=== PATIENT | female | born 1990 | race Caucasian/White ===

== ENCOUNTER 2018-05-25 08:04 | Outpatient (CLI) | payer OTHER ==
[2018-05-25 08:44] LABS: BASOPHILS # (AUTO) 0.1 10^3/uL (0.0-0.1); EOSINOPHILS # (AUTO) 0.2 10^3/uL (0.0-0.7); EOSINOPHILS % (AUTO) 2.4 %; HGB - HEMOGLOBIN 12.5 g/dL (12.0-16.0); LYMPHOCYTES # (AUTO) 1.8 10^3/uL (1.5-3.5); LYMPHOCYTES % (AUTO) 27.6 %; MEAN CORPUSCULAR HEMOGLOBIN 30.8 pg (27.0-31.0); MEAN CORPUSCULAR HGB CONC 34.3 g/dL (32.0-36.0); MEAN CORPUSCULAR VOLUME 89.8 fL (81.0-99.0); MEAN PLATELET VOLUME 9.6 fL (7.9-10.8); MONOCYTES # (AUTO) 0.4 10^3/uL (0.0-1.0); MONOCYTES % (AUTO) 6.2 %; NEUTROPHILS # (AUTO) 4.1 10^3/uL (1.5-6.6); NEUTROPHILS % (AUTO) 62.8 %; PLT - PLATELET COUNT 261 10^3/uL (130-450); RED BLOOD COUNT 4.05 10^6/uL (4.20-5.40); RED CELL DISTRIBUTION WIDTH 12.8 % (12.0-15.0); WHITE BLOOD COUNT 6.6 x10^3/uL (4.8-10.8)
[2018-05-25 08:47] LABS: ALBUMIN 4.5 g/dL (3.2-5.5); ALBUMIN/GLOBULIN RATIO 1.5 (1.0-2.2); ALKALINE PHOSPHATASE 36 IU/L (42-121); ALT ALANINE AMINOTRANSFERASE 32 IU/L (10-60); AST ASPARTATE AMINOTRANSFERASE 32 IU/L (10-42); BUN - BLOOD UREA NITROGEN 11 mg/dL (6-20); CALCIUM 9.2 mg/dL (8.5-10.3); CARBON DIOXIDE - CO2 25 mmol/L (21-32); CHLORIDE 103 mmol/L (101-111); CHOL/HDL RATIO 2.3 (<4.4); CHOLESTEROL 201 mg/dL; CREATININE 0.8 mg/dL (0.4-1.0); GFR - MDRD 85 (>89); GLUCOSE 93 mg/dL (70-100); HDL CHOLESTEROL 88 mg/dL; LDL CHOLESTEROL,CALCULATED 97 mg/dL; LDL/HDL RATIO 1.1 (<4.4); SODIUM 136 mmol/L (135-145); TOTAL PROTEIN 7.5 g/dL (6.7-8.2); VLDL CHOLESTEROL 16 mg/dL
[2018-05-25 08:59] LABS: THYROID STIMULATING HORMONE 0.73 uIU/mL (0.34-5.60)
[2018-05-25 09:10] LABS: FOLATE 14.91 ng/mL (5.90 - >24.8)
== END 2018-05-25 08:05 | disposition home or self-care (01) ==
LOC: LAB 08:04
PROVIDERS: ATTEND Nurse Practitioner
DX: E55.9 Vitamin D deficiency, unspecified (principal); R53.83 Other fatigue; R03.0 Elevated blood-pressure reading, without diagnosis of hypertension
CPT/HCPCS: 36415; 80053; 80061; 82306; 82607; 82746; 83721; 84443; 85025

== ENCOUNTER 2018-05-28 16:15 | Outpatient (CLI) | payer OTHER ==
[2018-05-28 17:07] LABS: % IRON SATURATION 18 % (20-50); IRON 74 ug/dL (28-170); TOTAL IRON BINDING CAPACITY 402 ug/dL (250-450); TRANSFERRIN 287 mg/dL (192-382)
== END 2018-05-28 16:16 | disposition home or self-care (01) ==
LOC: LAB 16:15
PROVIDERS: ATTEND Nurse Practitioner
DX: R53.83 Other fatigue (principal); D64.9 Anemia, unspecified
CPT/HCPCS: 36415; 82728; 83540; 84466

== ENCOUNTER 2018-06-26 17:16 | Emergency (ER) | payer OTHER ==
[2018-06-26 17:52] LABS: BASOPHILS # (AUTO) 0.1 10^3/uL (0.0-0.1); BASOPHILS % (AUTO) 1.2 %; EOSINOPHILS # (AUTO) 0.1 10^3/uL (0.0-0.7); HGB - HEMOGLOBIN 11.9 g/dL (12.0-16.0); LYMPHOCYTES # (AUTO) 2.5 10^3/uL (1.5-3.5); LYMPHOCYTES % (AUTO) 38.5 %; MEAN CORPUSCULAR HEMOGLOBIN 30.6 pg (27.0-31.0); MEAN CORPUSCULAR HGB CONC 33.9 g/dL (32.0-36.0); MEAN CORPUSCULAR VOLUME 90.1 fL (81.0-99.0); MEAN PLATELET VOLUME 9.5 fL (7.9-10.8); MONOCYTES # (AUTO) 0.5 10^3/uL (0.0-1.0); MONOCYTES % (AUTO) 7.5 %; NEUTROPHILS # (AUTO) 3.3 10^3/uL (1.5-6.6); NEUTROPHILS % (AUTO) 50.8 %; PLT - PLATELET COUNT 259 10^3/uL (130-450); RED BLOOD COUNT 3.89 10^6/uL (4.20-5.40); RED CELL DISTRIBUTION WIDTH 12.9 % (12.0-15.0); WHITE BLOOD COUNT 6.5 x10^3/uL (4.8-10.8)
[2018-06-26 17:57] LABS: ALBUMIN 4.2 g/dL (3.2-5.5); ALBUMIN/GLOBULIN RATIO 1.3 (1.0-2.2); BILIRUBIN,TOTAL 0.5 mg/dL (0.2-1.0); CALCIUM 9.1 mg/dL (8.5-10.3); CREATININE 0.7 mg/dL (0.4-1.0); TOTAL PROTEIN 7.4 g/dL (6.7-8.2)
--- NOTE | 2018-06-26 19:28 | XRAY Report ---
Reason: CP Procedure Date: 06/26/2018 Accession Number: [id number] / [id number] Procedure: XR - Chest 2 View X-Ray CPT Code: 91533 FULL RESULT: EXAM: CHEST RADIOGRAPHY EXAM DATE: 06/26/2018 07:11 PM. CLINICAL HISTORY: Chest pain. Heart murmur. COMPARISON: None. TECHNIQUE: 2 views. FINDINGS: Lungs/Pleura: No focal opacities evident. No pleural effusion. No pneumothorax. Normal volumes. Mediastinum: Heart and mediastinal contours are unremarkable. Other: None. IMPRESSION: Normal 2-view chest radiography. RADIA
--- NOTE | 2018-06-26 19:42 | ED Physician Documentation ---
PD HPI CHEST PAIN - Stated complaint Stated Complaint: CP - Chief complaint Chief Complaint: Cardiac - History obtained from History obtained from: Patient - Additional information Additional information: 28-year-old female presents with chest pain which radiates into her neck. The symptoms occurred earlier today. Symptoms are described as moderate. The patient has a history of recurring chest pain and currently is being evaluated by her primary care. The patient denies recent dyspnea on exertion, URI symptoms, fever, cough or congestion. No recent injury or trauma. The patient also reports palpitations. The patient reports feeling dizzy and lightheaded. Symptoms are described as moderate. No other associated symptoms. No triggering factors. 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) HEENT: Tonsil/Adenoidectomy - Present Medications Home Medications: Ambulatory Orders Medication Instructions Recorded Confirmed Home Medications Unobtainable 06/26/18 06/26/18 [HOME MEDICATIONS UNOBTAINABLE] - Allergies Allergies/Adverse Reactions: Allergies Allergy/AdvReac Type Severity Reaction Status Date / Time doxycycline Allergy Rash Verified 06/26/18 18:16 erythromycin base AdvReac Nausea Verified 06/26/18 18:15 - Social History Does the pt smoke?: No Smoking Status: Never smoker Does the pt drink ETOH?: Yes Does the pt have substance abuse?: No - Immunizations Immunizations are current?: Yes PD ED PE NORMAL - General General: Alert and oriented X 3, No acute distress - HEENT HEENT: Atraumatic, PERRL, EOMI, Ears normal - Neck Neck: Supple, no meningeal sign - Cardiac Cardiac: RRR, Strong equal pulses - Respiratory Respiratory: No respiratory distress, Clear bilaterally - Abdomen Abdomen: Soft, Non tender, Non distended - Derm Derm: Normal color - Extremities Extremities: No deformity, Normal ROM s pain, No edema - Neuro Neuro: Alert and oriented X 3, Normal speech - Psych Psych: Normal mood Results - Vitals Vitals: Vital Signs - 24 hr 06/26/18 06/26/18 06/26/18 17:23 18:17 19:34 Temperature 36.2 C L Heart Rate 85 76 80 Respiratory 18 18 19 Rate Blood Pressure 131/76 H 116/78 114/63 O2 Saturation 100 100 100 Oxygen O2 Source Room air - EKG (time done) 17:28 Rate: Rate (enter#) Rhythm: NSR [place]: Normal Intervals: Normal NE QRS: Normal Ischemia: Normal ST segments - Labs Labs: Laboratory Tests 06/26/18 06/26/18 06/26/18 17:38 17:38 17:38 WBC 6.5 RBC 3.89 L Hgb 11.9 L Hct 35.1 L MCV 90.1 MCH 30.6 MCHC 33.9 RDW 12.9 Plt Count 259 MPV 9.5 Neut # (Auto) 3.3 Lymph # (Auto) 2.5 [place] # (Auto) 0.5 Eos # (Auto) 0.1 Baso # (Auto) 0.1 Absolute Nucleated RBC 0.01 Nucleated RBC % 0.1 Sodium 137 Potassium 3.7 Chloride 102 Carbon Dioxide 27 Anion Gap 8.0 BUN 9 Creatinine 0.7 Estimated GFR (MDRD) 99 Glucose 105 H Calcium 9.1 Total Bilirubin 0.5 AST 27 ALT 26 Alkaline Phosphatase 39 L Troponin I < 0.04 Total Protein 7.4 Albumin 4.2 Globulin 3.2 Albumin/Globulin Ratio 1.3 Lipase 38 - Rads (name of study) CXR Radiology: Final report received (IMPRESSION: Normal 2-view chest radiography. ) PD MEDICAL DECISION MAKING - ED course ED course: The patient's evaluation does not show any significant and the patient is extremely low risk for early acute coronary syndrome. Pulmonary embolism is also unlikely. Currently, the patient appears appropriate for discharge and ongoing outpatient management. I discussed with her the findings and plan and she understands and agrees. The patient is scheduled to see her primary tomorrow and is appropriate for discharge and further workup as an outpatient. I discussed warning signs and recommended returning to the emergency department immediately for any worsening or any concerns. Departure - Departure Disposition: 01 Home, Self Care Clinical Impression: Chest pain Qualifiers: Chest pain type: unspecified Qualified Code(s): R07.9 - Chest pain, unspecified Condition: Good Instructions: ED Chest Pain [facility] Follow-Up: Cindy Espinoza DNP [Primary Care Provider] - Tomorrow (Please ask your primary care nurse practitioner to arrange for an outpatient echocardiogram and Holter monitor to further evaluate your symptoms.) Comments: Please return to the emergency department for any worsening symptoms or any concerns
[2018-06-26 19:44] VITALS: BP 117/78
== END 2018-06-26 19:51 | disposition home or self-care (01) ==
LOC: ED 17:16
DX: R07.9 Chest pain, unspecified (principal)
CPT/HCPCS: 36415; 71046; 80053; 83690; 84484; 85025; 93005; 99283; 99284

== ENCOUNTER 2018-07-02 13:32 | Outpatient (CLI) | payer OTHER ==
--- NOTE | 2018-07-02 15:32 | XRAY Report ---
Reason: ARTHRITIS,BILAT HAND Procedure Date: 07/02/2018 Accession Number: [id number] / [id number] Procedure: XR - Hand 2 View BILAT CPT Code: FULL RESULT: EXAMS: 1. Right Hand Radiography 2. Left Hand Radiography EXAM DATE: 07/02/2018 02:46 PM. CLINICAL HISTORY: Bilateral hand pain COMPARISON: None. TECHNIQUE: 3 views each hand. FINDINGS: Right: Bones: No fractures or bone lesions. Joints: No subluxations. Soft Tissues: No soft tissue swelling or radiopaque foreign body. Left: Bones: No fractures or bone lesions. Joints: No subluxations. Soft Tissues: No soft tissue swelling or radiopaque foreign body.. IMPRESSION: Normal bilateral hand radiography. RADIA
[2018-07-04 13:50] LABS: ANA SCREEN NEGATIVE (NEGATIVE)
== END 2018-07-02 13:33 | disposition home or self-care (01) ==
LOC: LAB 13:32 → DI 13:33
PROVIDERS: ATTEND Nurse Practitioner
DX: M12.849 Other specific arthropathies, not elsewhere classified, unspecified hand (principal); R19.4 Change in bowel habit; R53.83 Other fatigue
CPT/HCPCS: 36415; 82274; 86038

== ENCOUNTER 2018-07-11 17:25 | Outpatient (CLI) | payer OTHER ==
--- NOTE | 2018-07-11 20:36 | Ultrasound Report ---
Reason: CAROTID BRUITIS,BILAT Procedure Date: 07/11/2018 Accession Number: [id number] / [id number] Procedure: US - Carotid Doppler Complete CPT Code: FULL RESULT: EXAM: BILATERAL CAROTID AND VERTEBRAL ARTERY DUPLEX DOPPLER ULTRASOUND. EXAM DATE: 07/11/2018 06:08 PM CLINICAL HISTORY: Carotid bruits, bilateral. COMPARISON: None. TECHNIQUE: Grayscale imaging, color Doppler, and duplex spectral Doppler were used to evaluate the carotid and vertebral arteries bilaterally. Static images were obtained. FINDINGS: No significant plaque is identified in the right or left common or internal carotid arteries. Normal antegrade flow is present in bilateral vertebral arteries. VELOCITIES (cm/sec): Right CCA mid: PSV 128.5 cm/sec CCA dist: PSV 118.8 cm/sec ICA prox: PSV 96.2 cm/sec, EDV 34.6 cm/sec ICA mid: PSV 113.1 cm/sec, EDV 36.3 cm/sec ICA dist: PSV 99.6 cm/sec, EDV 40.5 cm/sec ECA: PSV 82.7 cm/sec Vert: PSV 52.3 cm/sec ICA/CCA: 0.88 Left CCA mid: PSV 138.2 cm/sec CCA dist: PSV 129.0 cm/sec ICA prox: PSV 84.4 cm/sec, EDV 31.2 cm/sec ICA mid: PSV 101.3 cm/sec, EDV 40.5 cm/sec ICA dist: PSV 96.2 cm/sec, EDV 41.4 cm/sec ECA: PSV 116.1 cm/sec Vert: PSV 47.3 cm/sec ICA/CCA: 0.73 ICA diameter stenosis: Right: <50% by velocity and <70% by NASCET criteria. Left: <50% by velocity and <70% by NASCET criteria. IMPRESSION: 1. No significant bilateral carotid artery plaquing. 2. In the right carotid artery there are no elevated carotid artery velocities to suggest hemodynamically significant stenosis. 3. In the left carotid artery there are no elevated carotid artery velocities to suggest hemodynamically significant stenosis. 4. Normal antegrade flow is present in bilateral vertebral arteries. General Recommendations: Stenosis =50% ICA - Follow-up ultrasound 6-12 months Stenosis <50% ICA - High Risk Patient with plaque - Follow-up ultrasound 1-2 years Normal Study but High Risk Patient - Follow-up ultrasound 3-5 years Management recommendations and diagnostic criteria are based on current IAC endorsed standards in Carotid Artery Stenosis: Grayscale and Doppler Ultrasound Diagnosis. Validated velocity measurements with angiographic measurements and velocity criteria are extrapolated from diameter data as defined by the Society of Radiologists in Ultrasound Consensus Conference Radiology 2003; 229;340-346. RADIA
== END 2018-07-11 17:26 | disposition home or self-care (01) ==
LOC: DI 17:25
PROVIDERS: ATTEND Nurse Practitioner
DX: R09.89 Other specified symptoms and signs involving the circulatory and respiratory systems (principal)
CPT/HCPCS: 93880

== ENCOUNTER 2018-11-29 18:09 | Emergency (ER) | payer OTHER ==
[2018-11-29 18:21] VITALS: BP 127/83
--- NOTE | 2018-11-29 20:41 | ED Physician Documentation ---
PD HPI SKIN - Stated complaint Stated Complaint: BACK PAIN - Chief complaint Chief Complaint: Wound - Additional information Additional information: 28-year-old female presents the emergency department for evaluation of a mole which bled at the margins while showering today. The bleeding has resolved. The patient would like a biopsy to rule out the possibility of cancer. No other acute symptoms. Symptoms currently are mild. 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) HEENT: Tonsil/Adenoidectomy - Present Medications Home Medications: Ambulatory Orders Medication Instructions Recorded Confirmed Home Medications Unobtainable 06/26/18 06/26/18 [HOME MEDICATIONS UNOBTAINABLE] - Allergies Allergies/Adverse Reactions: Allergies Allergy/AdvReac Type Severity Reaction Status Date / Time doxycycline Allergy Rash Verified 06/26/18 18:16 erythromycin base AdvReac Nausea Verified 06/26/18 18:15 - Social History Does the pt smoke?: No Smoking Status: Never smoker Does the pt drink ETOH?: Yes Does the pt have substance abuse?: No - Immunizations Immunizations are current?: Yes - POLST Patient has POLST: No PD ED PE NORMAL - General General: Alert and oriented X 3, No acute distress - HEENT HEENT: Atraumatic, PERRL, EOMI, Ears normal - Derm Derm: Normal color, Other (The patient has a irregular mole on her mid back which is raised and there is some mild bleeding at the margins. There is no evidence of a superimposed infection, cellulitis or underlying abscess.) - Extremities Extremities: No deformity - Neuro Neuro: Alert and oriented X 3, Normal speech Results - Vitals Vitals: Vital Signs - 24 hr 11/29/18 18:16 Temperature 36.9 C Heart Rate 70 Respiratory 16 Rate Blood Pressure 127/83 H O2 Saturation 100 Oxygen O2 Source Room air PD MEDICAL DECISION MAKING - ED course ED course: The patient does have an atypical mole on her back, presently there is no acute findings. The patient appears appropriate for discharge with follow-up as an outpatient. I recommended that the mole get biopsied as an outpatient with primary care. The patient understands and agrees. The patient will return to the emergency department for any worsening or any concerns Departure - Departure Disposition: 01 Home, Self Care Clinical Impression: Atypical mole Condition: Good Instructions: Moles Monitor Follow-Up: Cindy Espinoza DNP [Primary Care Provider] - Within 1 week (Please follow-up with your primary care as soon as possible for further evaluation of the small and possible biopsy.) Comments: Please return to the emergency department for worsening symptoms or any concerns Discharge Date/Time: 11/29/18 20:55
== END 2018-11-29 20:55 | disposition home or self-care (01) ==
LOC: ED 18:09
DX: D22.5 Melanocytic nevi of trunk (principal)
CPT/HCPCS: 99282

== ENCOUNTER 2019-03-25 15:40 | Outpatient (CLI) | payer OTHER ==
[2019-03-25 16:05] LABS: HGB - HEMOGLOBIN 11.8 g/dL (12.0-16.0); MEAN CORPUSCULAR HEMOGLOBIN 30.1 pg (27.0-31.0); MEAN CORPUSCULAR HGB CONC 32.4 g/dL (32.0-36.0); MEAN CORPUSCULAR VOLUME 92.9 fL (81.0-99.0); RED BLOOD COUNT 3.92 10^6/uL (4.20-5.40); RED CELL DISTRIBUTION WIDTH 12.6 % (12.0-15.0); WHITE BLOOD COUNT 8.4 x10^3/uL (4.8-10.8)
== END 2019-03-25 15:41 | disposition home or self-care (01) ==
LOC: LAB 15:40
PROVIDERS: ATTEND Nurse Practitioner
DX: D64.9 Anemia, unspecified (principal); R53.83 Other fatigue; Z87.898 Personal history of other specified conditions
CPT/HCPCS: 36415; 82306; 82607; 84443; 85027

== ENCOUNTER 2019-03-29 14:55 | Outpatient (CLI) | payer OTHER ==
--- NOTE | 2019-03-29 16:02 | Ultrasound Report ---
Reason: PELVIC PAIN,POSTCOITAL BLEEDING Procedure Date: 03/29/2019 Accession Number: [id number] / [id number] Procedure: US - Pelvic w/Transvaginal CPT Code: FULL RESULT: EXAM: PELVIC ULTRASOUND EXAM DATE: 03/29/2019 03:37 PM. CLINICAL HISTORY: Pelvic pain, postcoital bleeding. COMPARISON: None. TECHNIQUE: Realtime transabdominal pelvic scan performed to identify the uterus and adnexa and as an overview of other pelvic structures, followed by transvaginal scan to provide greater detail of the uterus and adnexa, with static image documentation. FINDINGS: Uterus: 7.6 x 3.5 x 4.5 cm, volume 62 cc. Anteverted position. Normal overall size and echotexture. Masses: None. Endometrium: 6 mm. Avascular material is seen within the fundal endometrium and fluid is seen within the cervix. Cervix: No cervical masses detected. Right Ovary: 2.8 x 2.1 x 1.7 cm, volume 5.1 cc. Normal echotexture and blood flow. Left Ovary: 2.2 x 1.5 x 1.9 cm, volume 3 cc. Normal echotexture and blood flow. Free Fluid: None. Other: None. IMPRESSION: Material within the fundal endometrium and fluid within the endocervix. The patient reports her LMP to be on the day of the examination. Recommendation: Repeat examination during the proliferative phase versus consideration for tissue sampling if clinically indicated. RADIA
== END 2019-03-29 14:56 | disposition home or self-care (01) ==
LOC: DI 14:55
PROVIDERS: ATTEND Obstetrics & Gynecology
DX: R10.2 Pelvic and perineal pain (principal); N93.0 Postcoital and contact bleeding
CPT/HCPCS: 76830; 76856

== ENCOUNTER 2019-05-24 14:30 | Outpatient (CLI) | payer OTHER ==
--- NOTE | 2019-05-24 18:03 | XRAY Report ---
Reason: CERVICAL LYMPHADENOPATHY, THORACIC OUTLET SYNDROME Procedure Date: 05/24/2019 Accession Number: [id number] / [id number] Procedure: XR - Cervical Spine 2 View CPT Code: FULL RESULT: EXAM: CERVICAL AND THORACIC SPINE RADIOGRAPHY EXAM DATE: 05/24/2019 03:21 PM. CLINICAL HISTORY: Cervical lymphadenopathy, thoracic outlet syndrome. COMPARISON: CHEST 2 VIEW 06/26/2018 6:49 PM CERVICAL SPINE 2 VIEW 05/24/2019 3:00 PM. TECHNIQUE: 2 views of the thoracic spine and 3 views of the cervical spine. FINDINGS: Alignment: No acute malalignment. Mild lower thoracic dextroscoliosis. Bones: No fractures or bone lesions. Right C7 transverse process is slightly longer than typical, but not seferino cervical rib. Disks: Normal. Disk heights are maintained. Soft Tissues: Please see separate soft tissue neck report. The visualized lungs and cardiomediastinal silhouette are normal. IMPRESSION: 1. Right C7 transverse process is slightly longer than typical, but not seferino cervical rib. 2. Mild lower thoracic dextroscoliosis. 3. Otherwise grossly unremarkable cervical and thoracic spine plain films. RADIA
--- NOTE | 2019-05-24 18:03 | XRAY Report ---
Reason: CERVICAL LYMPHADENOPATHY, THORACIC OUTLET SYNDROME Procedure Date: 05/24/2019 Accession Number: [id number] / [id number] Procedure: XR - Thoracic Spine 2 View CPT Code: FULL RESULT: EXAM: CERVICAL AND THORACIC SPINE RADIOGRAPHY EXAM DATE: 05/24/2019 03:21 PM. CLINICAL HISTORY: Cervical lymphadenopathy, thoracic outlet syndrome. COMPARISON: CHEST 2 VIEW 06/26/2018 6:49 PM CERVICAL SPINE 2 VIEW 05/24/2019 3:00 PM. TECHNIQUE: 2 views of the thoracic spine and 3 views of the cervical spine. FINDINGS: Alignment: No acute malalignment. Mild lower thoracic dextroscoliosis. Bones: No fractures or bone lesions. Right C7 transverse process is slightly longer than typical, but not seferino cervical rib. Disks: Normal. Disk heights are maintained. Soft Tissues: Please see separate soft tissue neck report. The visualized lungs and cardiomediastinal silhouette are normal. IMPRESSION: 1. Right C7 transverse process is slightly longer than typical, but not seferino cervical rib. 2. Mild lower thoracic dextroscoliosis. 3. Otherwise grossly unremarkable cervical and thoracic spine plain films. RADIA
--- NOTE | 2019-05-27 10:34 | Ultrasound Report ---
Reason: CERVICAL LYMPHADENOPATHY, THORACIC OUTLET SYNDROME Procedure Date: 05/24/2019 Accession Number: [id number] / [id number] Procedure: US - Head or Neck Soft Tissue CPT Code: FULL RESULT: EXAM: NECK ULTRASOUND EXAM DATE: 05/24/2019 04:51 PM. CLINICAL HISTORY: CERVICAL LYMPHADENOPATHY, THORACIC OUTLET SYNDROME. Family history of lymphoma. Palpable lumps bilaterally. COMPARISON: None. TECHNIQUE: Real-time sonographic imaging was performed by the knife sharpener utilizing color-flow. Multiple loan servicing representative static images were saved for review. FINDINGS: Right submandibular gland 4.2 x 1.7 x 3.7 cm and left submandibular gland 4.2 x 1.6 x 3.2 cm. Both submandibular glands are unremarkable in appearance. No regional adenopathy, cystic or solid mass, or abnormal fluid collection is appreciated. IMPRESSION: Negative soft tissue neck ultrasound. No adenopathy is identified. RADIA
== END 2019-05-24 14:31 | disposition home or self-care (01) ==
LOC: DI 14:30
PROVIDERS: ATTEND Nurse Practitioner
DX: G54.0 Brachial plexus disorders (principal); R59.0 Localized enlarged lymph nodes; M41.9 Scoliosis, unspecified
CPT/HCPCS: 72040; 72070; 76536

== ENCOUNTER 2019-08-29 08:00 | Outpatient (CLI) | payer OTHER ==
[2019-08-30 23:05] LABS: CANDIDA GROUP DNA NEGATIVE (NEGATIVE); CANDIDA KRUSEI DNA NEGATIVE (NEGATIVE); TRICHOMONAS VAGINALIS DNA NEGATIVE (NEGATIVE)
== END 2019-08-29 23:59 | disposition home or self-care (01) ==
LOC: LAB.R 08:00
PROVIDERS: ATTEND Obstetrics & Gynecology
DX: N89.8 Other specified noninflammatory disorders of vagina (principal)
CPT/HCPCS: 87661; 87801

== ENCOUNTER 2019-10-11 15:06 | Outpatient (CLI) | payer OTHER ==
[2019-10-11 15:27] LABS: BASOPHILS # (AUTO) 0.1 10^3/uL (0.0-0.1); BASOPHILS % (AUTO) 0.7 %; EOSINOPHILS # (AUTO) 0.1 10^3/uL (0.0-0.7); EOSINOPHILS % (AUTO) 0.8 %; HGB - HEMOGLOBIN 12.2 g/dL (12.0-16.0); LYMPHOCYTES # (AUTO) 2.3 10^3/uL (1.5-3.5); LYMPHOCYTES % (AUTO) 32.1 %; MEAN CORPUSCULAR HEMOGLOBIN 30.6 pg (27.0-31.0); MEAN CORPUSCULAR HGB CONC 32.6 g/dL (32.0-36.0); MEAN CORPUSCULAR VOLUME 93.7 fL (81.0-99.0); MEAN PLATELET VOLUME 10.9 fL (7.9-10.8); MONOCYTES # (AUTO) 0.4 10^3/uL (0.0-1.0); MONOCYTES % (AUTO) 5.7 %; NEUTROPHILS # (AUTO) 4.3 10^3/uL (1.5-6.6); NEUTROPHILS % (AUTO) 60.6 %; PLT - PLATELET COUNT 297 10^3/uL (130-450); RED BLOOD COUNT 3.99 10^6/uL (4.20-5.40); RED CELL DISTRIBUTION WIDTH 12.9 % (12.0-15.0); WHITE BLOOD COUNT 7.1 x10^3/uL (4.8-10.8)
[2019-10-11 15:40] LABS: % IRON SATURATION 18 % (20-50); IRON 82 ug/dL (28-170); TOTAL IRON BINDING CAPACITY 455 ug/dL (250-450); TRANSFERRIN 325 mg/dL (192-382)
[2019-10-11 15:55] LABS: THYROID STIMULATING HORMONE 0.54 uIU/mL (0.34-5.60)
[2019-10-11 15:57] LABS: FREE T4 (FREE THYROXINE) 0.85 ng/dL (0.58-1.64)
[2019-10-11 16:01] LABS: FERRITIN 17.4 ng/mL (11.0-306.8)
== END 2019-10-11 15:07 | disposition home or self-care (01) ==
LOC: LAB 15:06
PROVIDERS: ATTEND Nurse Practitioner
DX: L65.9 Nonscarring hair loss, unspecified (principal); R53.82 Chronic fatigue, unspecified
CPT/HCPCS: 36415; 82607; 82728; 82746; 82747; 83540; 84439; 84443; 84466; 84481; 85025

== ENCOUNTER 2020-05-11 14:38 | Emergency (ER) | payer OTHER ==
[2020-05-11] MEDS ORDERED: predniSONE 20 MG TABLET PO STA (15:15)
--- NOTE | 2020-05-11 15:17 | ED Physician Documentation ---
History of Present Illness - Stated complaint Stated Complaint: ALLERGIC REACTION - Chief complaint Chief Complaint: Allergic Rx - History obtained from History obtained from: Patient - History of Present Illness Timing: Today Pain level max: 0 Pain level now: 0 - Additonal information Additional information: Patient states that she was dying her hair at home when she felt a burning on her scalp and neck. She immediately rinsed off the hair dye and took Claritin. Currently feeling better, though still has a burning and stinging. Nothing makes it better or worse. 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: Yes - POLST Patient has POLST: No PD ED PE NORMAL - Vitals Vital signs reviewed: Yes - General General: Alert and oriented X 3, No acute distress - HEENT HEENT: PERRL, Moist mucous membranes, Other - Neck Neck: Supple, no meningeal sign - Cardiac Cardiac: RRR, Strong equal pulses - Respiratory Respiratory: No respiratory distress, Clear bilaterally - Derm Derm: Warm and dry - Neuro Neuro: Alert and oriented X 3 - Psych Psych: Normal mood, Normal affect Results - Vitals Vitals: Vital Signs - 24 hr 05/11/20 05/11/20 14:44 15:28 Temperature 36.8 C 37.0 C Heart Rate 81 68 Respiratory 18 16 Rate Blood Pressure 135/78 H 114/79 O2 Saturation 98 100 Oxygen O2 Source Room air PD MEDICAL DECISION MAKING - ED course Complexity details: considered differential, d/w patient ED course: Patient with a mild scalp allergic reaction to hair dye. Will place on prednisone in addition to Benadryl or Claritin at home. Patient counseled regarding signs and symptoms for which I believe and urgent re-evaluation would be necessary. Patient with good understanding of and agreement to plan and is comfortable going home at this time This document was made in part using voice recognition software. While efforts are made to proofread this document, sound alike and grammatical errors may occur. Departure - Departure Disposition: 01 Home, Self Care Clinical Impression: Allergic reaction Qualifiers: Encounter type: initial encounter Qualified Code(s): T78.40XA - Allergy, unspecified, initial encounter Condition: Good Instructions: ED Allergic Reaction General Other Follow-Up: Nayely May ARNP, BUL[employer] SLUGS INSPECTOR-C [Primary Care Provider] - Within 1 week Prescriptions: predniSONE [Prednisone] 20 mg PO DAILY #3 tablet Comments: Return if you worsen. The medications as prescribed. You can continue Zyrtec, claritin and/or Benadryl as well. Discharge Date/Time: 05/11/20 15:44
[2020-05-11 15:29] VITALS: BP 114/79
== END 2020-05-11 15:44 | disposition home or self-care (01) ==
LOC: ED 14:38
DX: T49.4X5A Adverse effect of keratolytics, keratoplastics, and other hair treatment drugs and preparations, initial encounter (principal); X58.XXXA Exposure to other specified factors, initial encounter
CPT/HCPCS: 99282; 99284; J7512

== ENCOUNTER 2020-07-27 16:45 | Outpatient (CLI) | payer OTHER ==
--- NOTE | 2020-07-28 12:05 | Ultrasound Report ---
PROCEDURE: Pelvic w/Transvaginal INDICATIONS: PELVIC, ABD BLOATING, URINARY FREQUENCY TECHNIQUE: Real-time scanning was performed of the pelvic organs, with image documentation. Additional endovagi nal scanning was necessary due to incomplete visualization of the adnexal and endometrial structures by transabdominal scanning. COMPARISON: None. FINDINGS: Transabdominal scanning: Limited scanning through the kidneys shows no hydronephrosis. No pathologi c free abdominal or pelvic fluid. Endovaginal scanning: Uterus: Uterus is normal in size at 3.1 x 3.6 x 4.4 cm. The endometrium measures 12 mm in combined thickness. Minimal fluid is noted within the lower uterine segment and cervical canal. Ovaries: Right ovary measures 2.7 x 3.2 x 2.7 cm, volume 11.9 cc. Less than 12 follicles are noted. There is a focus of decreased echogenicity measuring 21 x 18 x 18 mm. Left ovary measures 2.9 x 1.5 x 2.5 cm, volume 5.7 cc. Less than 12 follicles are noted. IMPRESSION: 1. Right ovarian cyst. Reviewed by: Palma Pillai MD on 07/28/2020 12:03 PM PST Approved by: Palma Pillai MD on 07/28/2020 12:03 PM PST Station ID: [id number]
== END 2020-07-27 16:46 | disposition home or self-care (01) ==
LOC: DI 16:45
PROVIDERS: ATTEND Obstetrics & Gynecology
DX: N83.201 Unspecified ovarian cyst, right side (principal)
CPT/HCPCS: 76830; 76856

== ENCOUNTER 2020-08-15 23:12 | Outpatient (CLI) | payer OTHER | END 2020-08-15 23:13 | disposition critical access hospital (66) | LOC: EMS 23:12 | PROVIDERS: ATTEND Surgery | DX: R11.2 Nausea with vomiting, unspecified (principal); R20.0 Anesthesia of skin; F41.9 Anxiety disorder, unspecified; R07.89 Other chest pain | CPT/HCPCS: A0425; A0429 ==

== ENCOUNTER 2020-08-15 23:21 | Emergency (ER) | payer OTHER ==
[2020-08-15 23:48] LABS: BASOPHILS # (AUTO) 0.1 10^3/uL (0.0-0.1); BASOPHILS % (AUTO) 0.8 %; EOSINOPHILS # (AUTO) 0.1 10^3/uL (0.0-0.7); EOSINOPHILS % (AUTO) 1.5 %; HGB - HEMOGLOBIN 11.2 g/dL (12.0-16.0); LYMPHOCYTES # (AUTO) 2.9 10^3/uL (1.5-3.5); LYMPHOCYTES % (AUTO) 48.8 %; MEAN CORPUSCULAR HEMOGLOBIN 30.9 pg (27.0-31.0); MEAN CORPUSCULAR HGB CONC 32.8 g/dL (32.0-36.0); MEAN CORPUSCULAR VOLUME 94.2 fL (81.0-99.0); MEAN PLATELET VOLUME 10.8 fL (7.9-10.8); MONOCYTES # (AUTO) 0.5 10^3/uL (0.0-1.0); MONOCYTES % (AUTO) 7.9 %; NEUTROPHILS # (AUTO) 2.4 10^3/uL (1.5-6.6); NEUTROPHILS % (AUTO) 40.8 %; PLT - PLATELET COUNT 263 10^3/uL (130-450); RED BLOOD COUNT 3.62 10^6/uL (4.20-5.40); RED CELL DISTRIBUTION WIDTH 12.5 % (12.0-15.0)
[2020-08-16 00:02] LABS: ALBUMIN 4.7 g/dL (3.2-5.5); ALBUMIN/GLOBULIN RATIO 1.9 (1.0-2.2); BILIRUBIN,TOTAL 0.5 mg/dL (0.2-1.0); CALCIUM 9.2 mg/dL (8.5-10.3); CREATININE 0.7 mg/dL (0.4-1.0); TOTAL PROTEIN 7.2 g/dL (6.7-8.2)
--- NOTE | 2020-08-16 00:41 | ED Physician Documentation ---
History of Present Illness - Stated complaint Stated Complaint: HEART RACING - Chief complaint Chief Complaint: Cardiac - History obtained from History obtained from: Patient - History of Present Illness Timing: Today (tonight) Pain level max: 0 Pain level now: 0 Improved by: rest Worsened by: exertion, standing/ambulating - Additonal information Additional information: tonight shortly after eating dinner, patient had sudden onset nausea and vomiting. She then developed perioral numbness, felt lightheaded and experienced ringing in her ears, felt like she was going to pass out. She felt her heart was racing. She took a loratadine, thinking she might be having an allergic reaction to something she had just eaten. She called 911 and by the time the medics arrived, she was significantly improved and by the time of ED arrival she is asymptomatic. Review of Systems Constitutional: denies: Fever, Chills, Sweats Cardiac: reports: Palpitations. denies: Chest pain / pressure, Pedal edema, Ca lf pain Respiratory: denies: Dyspnea, Cough GI: reports: Nausea, Vomiting. denies: Abdominal Pain : denies: Now EGA Neurologic: reports: Generalized weakness (resolved), Numbness (perioral (resolved)), Near syncope. denies: Headache PD PAST MEDICAL HISTORY - Past Medical History Past Medical History: Yes Cardiovascular: Murmur, Valve disorder, Other Psych: Anxiety - Past Surgical History Past Surgical History: Yes /KILN HAND: LEEP (Cervical surgery) HEENT: Tonsil/Adenoidectomy - Present Medications Home Medications: Ambulatory Orders Medication Instructions Recorded Confirmed No Known Home Medications 08/15/20 08/15/20 - Allergies Allergies/Adverse Reactions: Allergies Allergy/AdvReac Type Severity Reaction Status Date / Time doxycycline Allergy Rash Verified 08/15/20 23:38 erythromycin base AdvReac Nausea Verified 08/15/20 23:38 - Social History Does the pt smoke?: No Smoking Status: Never smoker Does the pt drink ETOH?: Yes Does the pt have substance abuse?: No - Immunizations Immunizations are current?: Yes - POLST Patient has POLST: No PD ED PE NORMAL - Vitals Vital signs reviewed: Yes - General General: Alert and oriented X 3, No acute distress, Well developed/nourished - HEENT HEENT: PERRL, EOMI, Moist mucous membranes - Neck Neck: Supple, no meningeal sign - Cardiac Cardiac: RRR, No murmur, No gallop, No rub - Respiratory Respiratory: No respiratory distress, Clear bilaterally - Abdomen Abdomen: Soft, Non tender - Derm Derm: Normal color, Warm and dry - Neuro Neuro: Alert and oriented X 3, flight communications specialist 2-12 intact, Normal speech Eye Opening: Spontaneous Motor: Obeys Commands Verbal: Oriented GCS Score: 15 Results - Vitals Vitals: Oxygen O2 Source Room air - EKG (time done) No standard instances Rate: Rate (enter#) (88) Rhythm: NSR [place]: Normal Intervals: Normal [place] QRS: Normal Ischemia: Normal ST segments Other comments: Other comments (RSR' V1, V2) - Labs Labs: Laboratory Tests 08/15/20 08/15/20 23:38 23:38 WBC 6.0 RBC 3.62 L Hgb 11.2 L Hct 34.1 L MCV 94.2 MCH 30.9 MCHC 32.8 RDW 12.5 Plt Count 263 MPV 10.8 Neut # (Auto) 2.4 Lymph # (Auto) 2.9 [place] # (Auto) 0.5 Eos # (Auto) 0.1 Baso # (Auto) 0.1 Absolute Nucleated RBC 0.00 Nucleated RBC % 0.0 Sodium 137 Potassium 3.4 L Chloride 102 Carbon Dioxide 26 Anion Gap 9.0 BUN 13 Creatinine 0.7 Estimated GFR (MDRD) 98 Glucose 121 H Calcium 9.2 Total Bilirubin 0.5 AST 20 ALT 20 Alkaline Phosphatase 42 Total Protein 7.2 Albumin 4.7 Globulin 2.5 Albumin/Globulin Ratio 1.9 Lipase 38 PD MEDICAL DECISION MAKING - ED course Complexity details: reviewed results, re-evaluated patient, considered differential, d/w patient Departure - Departure Disposition: 01 Home, Self Care Clinical Impression: Near syncope Condition: Good Instructions: ED Potassium Deficiency, ED Near Syncope Unkn Follow-Up: Nayely May ARNP, CHRONIC DISEASE EPIDEMIOLOGIST-C [Primary Care Provider] - Discharge Date/Time: 08/16/20 01:12
[2020-08-16 01:08] VITALS: BP 134/76
== END 2020-08-16 01:12 | disposition home or self-care (01) ==
LOC: EDUNIT# → ED 23:21
DX: R55 Syncope and collapse (principal); R00.2 Palpitations; R11.2 Nausea with vomiting, unspecified
CPT/HCPCS: 36415; 80053; 83690; 85025; 93005; 99282; 99284

== ENCOUNTER 2020-08-18 20:03 | Emergency (ER) | payer OTHER ==
--- NOTE | 2020-08-18 20:38 | ED Physician Documentation ---
History of Present Illness - Stated complaint Stated Complaint: ELEVATED HEART RATE, LIGHTHEADED, NAUSEA - Chief complaint Chief Complaint: Cardiac - History obtained from History obtained from: Patient - History of Present Illness Timing: How many hours ago (2) - Additonal information Additional information: 30-year-old female presents emergency department for evaluation of chest palpitations and chest pain. She reports it started about 2 hours ago after eating dinner and then swallowing an herbal vitamin. She reports that the pain has since subsided but she was anxious that there could be something wrong with her heart. She was seen in this emergency department 3 days ago for similar. She had an unremarkable work-up at that time. 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 She has been evaluated by physical therapy. She was offered surgery but did not want to proceed with having a rib removed. She has no history of hypertension. No history of diabetes. Non-smoker. Unsure of family cardiac history. She is not taking any hormones. She has no pleuritic chest pain. Denies recent travel, unilateral leg swelling or calf pain tenderness Review of Systems Constitutional: reports: Myalgias (chronic). denies: Fever, Chills Eyes: reports: Reviewed and negative Ears: reports: Reviewed and negative Nose: reports: Reviewed and negative Throat: reports: Reviewed and negative Cardiac: reports: Chest pain / pressure, Palpitations. denies: Pedal edema, Calf pain Respiratory: denies: Dyspnea, Cough, Hemoptysis, Wheezing GI: reports: Nausea. 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) HEENT: Tonsil/Adenoidectomy - Present Medications Home Medications: Ambulatory Orders Medication Instructions Recorded Confirmed No Known Home Medications 08/15/20 08/18/20 - Allergies Allergies/Adverse Reactions: Allergies Allergy/AdvReac Type Severity Reaction Status Date / Time doxycycline Allergy Rash Verified 08/18/20 20:48 erythromycin base AdvReac Nausea Verified 12/08/20 20:48 - Social History Does the pt smoke?: No Smoking Status: Never smoker Does the pt drink ETOH?: Yes Does the pt have substance abuse?: No - Immunizations Immunizations are current?: Yes - POLST Patient has POLST: No PD ED PE EXPANDED - General General: Alert, No acute distress, Well developed/nourished - HEENT HEENT: PERRL, Moist mucous membranes - Neck Neck: Supple w/out meningeal sx, No tenderness. No: Adenopathy - Cardiac Cardiac: Regular Rate, Regular Rhythm, Radial strong equal, Pedal strong equal, Cap refill < 2 sec. No: Murmur Present - Respiratory Respiratory: Clear to ausultation yolanda. No: Distress, Labored - Abdomen Abdomen: Normal Bowel sounds. No: Tender to palpation - Derm Derm: No: Rash - Extremities Extremities: Normal. No: Deformity, Tenderness - Neuro Neuro: Alert and Oriented X 3, CNII-XII intact - Psych Psych: Normal Results - Vitals Vitals: Vital Signs - 24 hr 08/18/20 08/18/20 20:14 20:40 Temperature 37.3 C Heart Rate 88 84 Respiratory 21 19 Rate Blood Pressure 139/99 H 126/90 H O2 Saturation 100 99 Oxygen O2 Source Room air - EKG (time done) 2009 Rate: Rate (enter#) (84) Rhythm: NSR [place]: Normal Intervals: Normal [place] QRS: Normal Ischemia: Normal ST segments Compare to prior EKG: Unchanged from prior EKG Computer interpretation: Agree with computer - Labs Labs: Laboratory Tests 08/18/20 08/18/20 08/18/20 20:35 20:35 20:35 WBC 6.0 RBC 3.96 L Hgb 12.1 Hct 37.3 MCV 94.2 MCH 30.6 MCHC 32.4 RDW 12.4 Plt Count 295 MPV 11.1 H Neut # (Auto) 3.5 Lymph # (Auto) 1.9 [place] # (Auto) 0.5 Eos # (Auto) 0.1 Baso # (Auto) 0.0 Absolute Nucleated RBC 0.00 Nucleated RBC % 0.0 D-Dimer < 200.0 L Sodium 139 Potassium 3.6 Chloride 102 Carbon Dioxide 27 Anion Gap 10.0 BUN 9 Creatinine 0.7 Estimated GFR (MDRD) 98 Glucose 111 H Calcium 9.6 Total Bilirubin 0.6 AST 22 ALT 25 Alkaline Phosphatase 47 Troponin I High Sens Total Protein 7.4 Albumin 5.0 Globulin 2.4 Albumin/Globulin Ratio 2.1 Lipase 36 08/18/20 20:35 WBC RBC Hgb Hct MCV MCH MCHC RDW Plt Count MPV Neut # (Auto) Lymph # (Auto) [place] # (Auto) Eos # (Auto) Baso # (Auto) Absolute Nucleated RBC Nucleated RBC % D-Dimer Sodium Potassium Chloride Carbon Dioxide Anion Gap BUN Creatinine Estimated GFR (MDRD) Glucose Calcium Total Bilirubin AST ALT Alkaline Phosphatase Troponin I High Sens 6.6 Total Protein Albumin Globulin Albumin/Globulin Ratio Lipase PD MEDICAL DECISION MAKING - ED course Complexity details: reviewed old records, reviewed results, re-evaluated patient, considered differential, d/w patient ED course: 30-year-old female return to the emergency department for evaluation of palpita tions chest pain experienced at home this evening. She had swallowed a vitamin and herbal supplement and then began to have the palpitations and chest pain shortly thereafter. She had a presentation for similar about 3 days ago. On exam she has a nonischemic EKG. High-sensitivity troponin is negative. Chest x-ray shows no acute focal abnormalities. No cardiomegaly. Routine labs including a CBC and electrolytes are unremarkable. Though she is PERC negative a D-dimer was completed. It is not elevated. My suspicion for pulmonary embolus is quite low. It is unclear to me the reason for the palpitations and chest pain at this time. She does report a history of arterial thoracic outlet syndrome but this is not likely contributing to her symptoms. I have advised that she continue to see her primary care provider as an outpatient. She may benefit from a Holter monitor or referral for outpatient cardio stress testing. Patient is to return to the emergency department if she develops severe shortness of breath, has any fainting episodes, has unrelenting chest pain or any other emergent concerns Departure - Departure Disposition: Home, Self Care Clinical Impression: Chest pain Qualifiers: Chest pain type: unspecified Qualified Code(s): R07.9 - Chest pain, unspecified Condition: Stable Record reviewed to determine appropriate education?: Yes Instructions: ED Chest Pain Noncardiac Ch Follow-Up: Nayely May ARNP, DRIER OPERATOR HEAD-C [Primary Care Provider] - Comments: Paz you are seen today in the emergency department for chest pain. Your EKG today was essentially unremarkable. Chest x-ray was normal. All of the labs that we sent were also on concerning including a troponin and a D-dimer. It is not clear what the cause of your discomfort was today. I would recommend that you continue to follow-up with your primary care provider. Outpatient Holter monitor or referral to a bolt maker for evaluation of stress testing can be considered. If at any point you develop a fainting episode with loss of consciousness, or severely short of breath, have unilateral leg swelling, have chest pain that does not go away please return immediately to the ER
[2020-08-18 20:49] LABS: BASOPHILS % (AUTO) 0.5 %; EOSINOPHILS # (AUTO) 0.1 10^3/uL (0.0-0.7); EOSINOPHILS % (AUTO) 0.8 %; HGB - HEMOGLOBIN 12.1 g/dL (12.0-16.0); LYMPHOCYTES # (AUTO) 1.9 10^3/uL (1.5-3.5); LYMPHOCYTES % (AUTO) 32.4 %; MEAN CORPUSCULAR HEMOGLOBIN 30.6 pg (27.0-31.0); MEAN CORPUSCULAR HGB CONC 32.4 g/dL (32.0-36.0); MEAN CORPUSCULAR VOLUME 94.2 fL (81.0-99.0); MEAN PLATELET VOLUME 11.1 fL (7.9-10.8); MONOCYTES # (AUTO) 0.5 10^3/uL (0.0-1.0); NEUTROPHILS # (AUTO) 3.5 10^3/uL (1.5-6.6); PLT - PLATELET COUNT 295 10^3/uL (130-450); RED BLOOD COUNT 3.96 10^6/uL (4.20-5.40); RED CELL DISTRIBUTION WIDTH 12.4 % (12.0-15.0)
[2020-08-18 21:04] LABS: ALBUMIN/GLOBULIN RATIO 2.1 (1.0-2.2); BILIRUBIN,TOTAL 0.6 mg/dL (0.2-1.0); CALCIUM 9.6 mg/dL (8.5-10.3); CREATININE 0.7 mg/dL (0.4-1.0); TOTAL PROTEIN 7.4 g/dL (6.7-8.2)
--- NOTE | 2020-08-18 21:09 | XRAY Report ---
PROCEDURE: Chest 1 View X-Ray INDICATIONS: Chest Pain TECHNIQUE: One view of the chest was acquired. COMPARISON: None FINDINGS: Surgical changes and devices: None. Lungs and pleura: No pleural effusions or pneumothorax. Lungs are clear. Mediastinum: Mediastinal contours appear normal. Heart size is normal. Bones and chest wall: No suspicious bony lesions. Overlying soft tissues appear unremarkable. IMPRESSION: No acute cardiopulmonary abnormality Reviewed by: Tony Boone on 08/18/2020 9:07 PM [facility] Approved by: Tony Boone on 08/18/2020 9:07 PM [facility] Station ID: [id number]
[2020-08-18 21:28] VITALS: BP 120/77
[2020-08-18 21:33] LABS: BILIRUBIN,URINE NEGATIVE (NEGATIVE); GLUCOSE, URINE (UA) NEGATIVE (NEGATIVE); KETONES,URINE (UA) NEGATIVE (NEGATIVE); LEUKOCYTE ESTERASE, URINE NEGATIVE (NEGATIVE); NITRITE,URINE NEGATIVE (NEGATIVE); OCCULT BLOOD,URINE TRACE-INTA (NEGATIVE); PH,URINE 7.5 PH (5.0-7.5); PROTEIN,URINE NEGATIVE (NEGATIVE); UROBILINOGEN,URINE 0.2 (NORMAL) E.U./dL (NORMAL)
[2020-08-18 21:35] LABS: CLARITY,URINE CLEAR (CLEAR); HCG UR QUAL NEGATIVE
== END 2020-08-18 21:36 | disposition home or self-care (01) ==
LOC: ED 20:03
DX: R07.9 Chest pain, unspecified (principal); R00.2 Palpitations; G54.0 Brachial plexus disorders
CPT/HCPCS: 36415; 80053; 81001; 81003; 81025; 83690; 84484; 85025; 85379; 87086; 93005; 99284

== ENCOUNTER 2020-11-26 08:41 | Outpatient (CLI) | payer OTHER ==
[2020-11-26 09:00] LABS: BASOPHILS % (AUTO) 0.6 %; EOSINOPHILS # (AUTO) 0.1 10^3/uL (0.0-0.7); EOSINOPHILS % (AUTO) 1.2 %; HCT - HEMATOCRIT 38.3 % (37.0-47.0); HGB - HEMOGLOBIN 12.5 g/dL (12.0-16.0); LYMPHOCYTES # (AUTO) 2.2 10^3/uL (1.5-3.5); LYMPHOCYTES % (AUTO) 45.4 %; MEAN CORPUSCULAR HEMOGLOBIN 30.7 pg (27.0-31.0); MEAN CORPUSCULAR HGB CONC 32.6 g/dL (32.0-36.0); MEAN CORPUSCULAR VOLUME 94.1 fL (81.0-99.0); MEAN PLATELET VOLUME 11.3 fL (7.9-10.8); MONOCYTES # (AUTO) 0.3 10^3/uL (0.0-1.0); MONOCYTES % (AUTO) 6.6 %; NEUTROPHILS # (AUTO) 2.2 10^3/uL (1.5-6.6); PLT - PLATELET COUNT 262 10^3/uL (130-450); RED BLOOD COUNT 4.07 10^6/uL (4.20-5.40); RED CELL DISTRIBUTION WIDTH 13.2 % (12.0-15.0); WHITE BLOOD COUNT 4.8 x10^3/uL (4.8-10.8)
[2020-11-26 09:39] LABS: THYROID STIMULATING HORMONE 1.1 uIU/mL (0.34-5.60)
[2020-11-26 09:41] LABS: FREE T4 (FREE THYROXINE) 0.67 ng/dL (0.58-1.64)
[2020-11-26 09:42] LABS: FREE T3 3.01 pg/mL (2.5-3.9)
[2020-11-26 09:50] LABS: % IRON SATURATION 23 % (20-50); IRON 102 ug/dL (28-170); TOTAL IRON BINDING CAPACITY 445 ug/dL (250-450); TRANSFERRIN 318 mg/dL (192-382)
== END 2020-11-26 08:42 | disposition home or self-care (01) ==
LOC: LAB 08:41
PROVIDERS: ATTEND Nurse Practitioner
DX: R55 Syncope and collapse (principal); Z79.899 Other long term (current) drug therapy; K21.9 Gastro-esophageal reflux disease without esophagitis; D64.9 Anemia, unspecified; E55.9 Vitamin D deficiency, unspecified
CPT/HCPCS: 36415; 82306; 82607; 83540; 84439; 84443; 84466; 84481; 85025

== ENCOUNTER 2020-12-12 20:23 | Emergency (ER) | payer OTHER ==
[2020-12-12 20:31] VITALS: BP 123/86
--- NOTE | 2020-12-12 20:50 | ED Physician Documentation ---
History of Present Illness - Stated complaint Stated Complaint: LT FINGER LAC - Chief complaint Chief Complaint: Laceration - History obtained from History obtained from: Patient - History of Present Illness Timing: Today Pain level max: 2 Pain level now: 1 - Additonal information Additional information: 30-year-old female presents to the emergency department with a laceration to the left middle finger while cutting potatoes tonight. Nothing makes it better or worse. Tetanus up-to-date. 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) HEENT: Tonsil/Adenoidectomy - Present Medications Home Medications: Ambulatory Orders Medication Instructions Recorded Confirmed Albuterol Sulfate [Proair Hfa 1 inh PRN 12/12/20 Inhaler] - Allergies Allergies/Adverse Reactions: Allergies Allergy/AdvReac Type Severity Reaction Status Date / Time doxycycline Allergy Rash Verified 12/12/20 20:31 erythromycin base AdvReac Nausea Verified 12/12/20 20:31 - Social History Does the pt smoke?: No Smoking Status: Never smoker Does the pt drink ETOH?: Yes Does the pt have substance abuse?: No - Immunizations Immunizations are current?: Yes - POLST Patient has POLST: No PD ED PE NORMAL - Vitals Vital signs reviewed: Yes - General General: Alert and oriented X 3, No acute distress, Well developed/nourished - HEENT HEENT: Moist mucous membranes - Derm Derm: Warm and dry - Neuro Neuro: Alert and oriented X 3 - Psych Psych: Normal mood, Normal affect PD ED PE EXPANDED - Extremities MARIA LUISA UE/Hands Visual: 1 - laceration (0.6cm laceration across finger and 1[address] the proximal nail.) Results - Vitals Vitals: Vital Signs - 24 hr 12/12/20 20:29 Temperature 36.6 C Heart Rate 80 Respiratory 16 Rate Blood Pressure 123/86 H O2 Saturation 100 Oxygen O2 Source Room air Procedures - Laceration (location) Left third digit Length in cm: 0.6 Wound type: Linear, Clean Neurovascular status: Sensory intact, Motor intact Wound preparation: Irrigated copiously NS Skin layer closure: Dermabond Other: Patient tolerated well, No complications, Neurovascular intact, Tetanus UTD PD MEDICAL DECISION MAKING - ED course Complexity details: considered differential, d/w patient ED course: Laceration repaired with Dermabond. Tolerated well. It is a nonnonmobile area. Nail does not need any special repair. Tetanus up-to-date. Warnings of infection and instructions on wound care given at bedside. Also counseled on how to minimize scarring. Patient counseled regarding signs and symptoms for which I believe and urgent re-evaluation would be necessary. Patient with good understanding of and agreement to plan and is comfortable going home at this time This document was made in part using voice recognition software. While efforts are made to proofread this document, sound alike and grammatical errors may occur. Departure - Departure Disposition: 01 Home, Self Care Clinical Impression: Finger laceration Qualifiers: Encounter type: initial encounter Finger: unspecified finger Damage to nail status: with damage Foreign body presence: without foreign body Laterality: left Qualified Code(s): S61.319A - Laceration without foreign body of unspecified finger with damage to nail, initial encounter Condition: Good Instructions: ED Laceration Hand Follow-Up: Camron Nino DO [Primary Care Provider] - As Needed Comments: Keep the wound clean. Return if you worsen. Follow up with your doctor as needed for further care.
--- OUTSIDE RECORDS SUMMARY | 2020-12-16 02:37 | EXTERNAL MEDICAL SUMMARY RPT | Continuity of Care Document ---
:1990 Demographics Phone Unavailable Preferred Language Unknown Marital Status Unknown Zoroastrianism Affiliation Unknown Race Unknown Ethnic Group Unknown Author Organization [facility] Address [address] [id number] Phone Social History date description facility [id number]
== END 2020-12-12 21:02 | disposition home or self-care (01) ==
LOC: ED 20:23
DX: S61.313A Laceration without foreign body of left middle finger with damage to nail, initial encounter (principal); W45.8XXA Other foreign body or object entering through skin, initial encounter; Y93.G1 Activity, food preparation and clean up
CPT/HCPCS: 12011; 99282

== ENCOUNTER 2021-09-05 13:28 | Outpatient (CLI) | payer OTHER ==
[2021-09-05 14:28] LABS: THYROID STIMULATING HORMONE 0.75 uIU/mL (0.34-5.60)
== END 2021-09-05 13:29 | disposition home or self-care (01) ==
LOC: LAB 13:28
PROVIDERS: ATTEND Obstetrics & Gynecology
DX: F32.81 Premenstrual dysphoric disorder (principal); N64.3 Galactorrhea not associated with childbirth
CPT/HCPCS: 36415; 82670; 83001; 84144; 84403; 84443

== ENCOUNTER 2021-09-14 13:02 | Outpatient (CLI) | payer OTHER ==
[2021-09-14 14:03] LABS: PROLACTIN 6.39 ng/mL
[2021-09-14 14:26] LABS: FOLLICLE STIMULATING HORMONE 7.69 mIU/mL
== END 2021-09-14 13:03 | disposition home or self-care (01) ==
LOC: LAB 13:02
PROVIDERS: ATTEND Obstetrics & Gynecology
DX: N64.3 Galactorrhea not associated with childbirth (principal); N94.3 Premenstrual tension syndrome
CPT/HCPCS: 36415; 82670; 83001; 84146

== ENCOUNTER 2021-11-15 07:29 | Outpatient (CLI) | payer OTHER ==
--- NOTE | 2021-11-15 16:50 | Ultrasound Report ---
PROCEDURE: Head or Neck Soft Tissue INDICATIONS: CERVICAL LYMPHADENOPATHY TECHNIQUE: Real time scanning was performed of the neck region of interest, with image documentation . COMPARISON: 05/24/2019. FINDINGS: The thyroid gland is homogeneous in echotexture without focal mass or nodules. Right thyroid lobe alicia sures 5.8 x 1.4 x 1.3 cm. Left thyroid lobe measures 4.7 x 1.1 x 1.6 cm. Isthmus measures 2 mm in thi ckness. Incidental note of normal lymph nodes in the right neck measuring 0.6 x 0.2 x 0.5 cm. A secon d incidental normal-appearing lymph node is seen near the right submandibular gland measuring 2.1 x 0 .8 x 1.2 cm. No suspicious mass lesions. No abnormal fluid collections. IMPRESSION: 1. Normal sonographic appearance of the thyroid gland. 2. Incidental note of normal-appearing right neck lymph nodes. 3. No suspicious mass or fluid collections in the right neck. Reviewed by: Shawn Calderon MD on 11/15/2021 4:49 PM PST Approved by: Shawn Calderon MD on 11/15/2021 4:49 PM PST Station ID: [id number]
== END 2021-11-15 07:30 | disposition home or self-care (01) ==
LOC: DI 07:29
PROVIDERS: ATTEND Obstetrics & Gynecology
DX: Z00.00 Encounter for general adult medical examination without abnormal findings (principal); D24.2 Benign neoplasm of left breast; R59.0 Localized enlarged lymph nodes